=== PATIENT | male | born 2005 | race African-American/Black ===

== ENCOUNTER 2023-10-03 09:51 | Emergency (ER) | payer OTHER ==
[2023-10-03 10:14] VITALS: O2SAT 100
--- NOTE | 2023-10-03 10:40 | ED Physician Documentation ---
PD HPI CHEST PAIN - Stated complaint Stated Complaint: CHEST PX,COUGH - Chief complaint Chief Complaint: Cardiac - History obtained from History obtained from: Patient - History of Present Illness Timing - onset: How many weeks ago (1) Timing - onset during: Light activity, Other (has had illness with fatigue, cough, aches and nausea the past week. Has had pain left chest with coughing, but has had it radnomly as well. No pattern of exertional CP, near syncope. Some dyspnea this week with the ill/cough feeling. Some occasional random sharp pains.) Timing - details: Abrupt onset (he has had occasional brief (seconds to a minute) left chest pains over the past year, not patterned with activity, exertion, eating. Resolves on own in seconds to minutes. Not associated with lightheaded/faint.), Intermittant Quality: Sharp, Pain Review of Systems Constitutional: reports: Chills, Myalgias Nose: reports: Congestion Cardiac: reports: Chest pain / pressure (wioth coughing just this week) Respiratory: reports: Dyspnea, Cough GI: reports: Nausea. denies: Vomiting, Diarrhea PD PAST MEDICAL HISTORY - Past Medical History Past Medical History: Yes Cardiovascular: None Respiratory: None Neuro: None Endocrine/Autoimmune: None GI: None : None HEENT: None Psych: None Musculoskeletal: None Derm: None - Past Surgical History Past Surgical History: Yes - Present Medications Home Medications: Ambulatory Orders Medication Instructions Recorded Confirmed Meloxicam [Mobic] 7.5 mg PO BID 10 Days #20 tablet 10/03/23 Ondansetron Odt [Zofran] 4 mg TL Q6H PRN #10 tablet 10/03/23 - Allergies Allergies/Adverse Reactions: Allergies Allergy/AdvReac Type Severity Reaction Status Date / Time No Known Drug Allergies Allergy Verified 10/03/23 10:00 - Social History Does the pt smoke?: No Smoking Status: Never smoker Does the pt drink ETOH?: No Does the pt have substance abuse?: No - Immunizations Immunizations are current?: Yes - POLST Patient has POLST: No PD ED PE NORMAL - Vitals Vital signs reviewed: Yes - General General: Alert and oriented X 3, Well developed/nourished - HEENT HEENT: Ears normal, Pharynx benign - Neck Neck: Supple, no meningeal sign, No adenopathy - Cardiac Cardiac: RRR, No murmur, No rub - Respiratory Respiratory: No respiratory distress, Clear bilaterally - Abdomen Abdomen: Normal bowel sounds, Soft, Non tender, Non distended - Derm Derm: Normal color, Warm and dry - Neuro Neuro: Alert and oriented X 3, No motor deficit, Normal speech Results - Vitals Vitals: Vital Signs - 24 hr 10/03/23 10/03/23 13:00 13:29 Heart Rate 76 69 Respiratory 18 16 Rate Blood Pressure 124/75 124/74 O2 Saturation 100 100 Oxygen O2 Source Room air - EKG (time done) 0:08 EKG releavant findings:: EKG personally interpreted by author of this note. Relevant findings are: Rate: Rate (enter#) (73) Rhythm: NSR [place]: Normal Intervals: Normal DC QRS: LVH Ischemia: Normal ST segments, ST elevation c/w repol. No: ST elevation c/w ischemia, ST depression - Labs Labs: Laboratory Tests 10/03/23 10/03/23 10/03/23 11:28 11:28 11:28 WBC 3.4 L RBC 5.41 Hgb 15.6 Hct 47.2 MCV 87.2 MCH 28.8 MCHC 33.1 RDW 12.5 Plt Count 244 MPV 8.7 Neut # (Auto) 1.4 L Lymph # (Auto) 1.7 Greer # (Auto) 0.3 Eos # (Auto) 0.1 Baso # (Auto) 0.0 Absolute Nucleated RBC 0.00 Nucleated RBC % 0.0 Sodium 140 Potassium 4.2 Chloride 104 Carbon Dioxide 33 H Anion Gap 3.0 L BUN 11 Creatinine 1.0 Estimated GFR (MDRD) 115 Glucose 73 L Calcium 9.2 Total Bilirubin 1.7 H AST 15 ALT 8 L Alkaline Phosphatase 58 Troponin I High Sens < 2.3 L B-Natriuretic Peptide Total Protein 6.6 Albumin 4.1 Globulin 2.5 Albumin/Globulin Ratio 1.6 Lipase 31 TSH 0.43 Nasal Adenovirus (PCR) Nasal B. parapertussis DNA (PCR) Nasal Coronavir 229E PCR Nasal Coronavir HKU1 PCR Nasal Coronavir NL63 PCR Nasal Coronavir OC43 PCR Nasal Enterovir/Rhinovir PCR Nasal Influenza B PCR Nasal Influenza A PCR Nasal Parainfluen 1 PCR Nasal Parainfluen 2 PCR Nasal Parainfluen 3 PCR Nasal Parainfluen 4 PCR Nasal RSV (PCR) Nasal B.pertussis DNA PCR Nasal C.pneumoniae (PCR) Jean Human Metapneumo PCR Nasal M.pneumoniae (PCR) Nasal SARS-CoV-2 (PCR) 10/03/23 10/03/23 11:28 11:35 WBC RBC Hgb Hct MCV MCH MCHC RDW Plt Count MPV Neut # (Auto) Lymph # (Auto) Greer # (Auto) Eos # (Auto) Baso # (Auto) Absolute Nucleated RBC Nucleated RBC % Sodium Potassium Chloride Carbon Dioxide Anion Gap BUN Creatinine Estimated GFR (MDRD) Glucose Calcium Total Bilirubin AST ALT Alkaline Phosphatase Troponin I High Sens B-Natriuretic Peptide 8 Total Protein Albumin Globulin Albumin/Globulin Ratio Lipase TSH Nasal Adenovirus (PCR) NOT DETECTED Nasal B. parapertussis DNA (PCR) NOT DETECTED Nasal Coronavir 229E PCR NOT DETECTED Nasal Coronavir HKU1 PCR NOT DETECTED Nasal Coronavir NL63 PCR NOT DETECTED Nasal Coronavir OC43 PCR NOT DETECTED Nasal Enterovir/Rhinovir PCR NOT DETECTED Nasal Influenza B PCR NOT DETECTED Nasal Influenza A PCR NOT DETECTED Nasal Parainfluen 1 PCR NOT DETECTED Nasal Parainfluen 2 PCR NOT DETECTED Nasal Parainfluen 3 PCR NOT DETECTED Nasal Parainfluen 4 PCR NOT DETECTED Nasal RSV (PCR) NOT DETECTED Nasal B.pertussis DNA PCR NOT DETECTED Nasal C.pneumoniae (PCR) NOT DETECTED Jean Human Metapneumo PCR NOT DETECTED Nasal M.pneumoniae (PCR) NOT DETECTED Nasal SARS-CoV-2 (PCR) NOT DETECTED PD Medical Decision Making - ED course Complexity details: reviewed results (CXR normal heart size and clear lungs. ECG early repol supported by normal Trop/BNP. Labs otherwise okay. ), considered differential (sounds currently like viral type syndrome with cough, aches, malaise and persistent fatigue. No signs of cardiomyopathy related to viral, with normal Trop, BNP, CXR, and ECG. ), d/w patient ED course: His current symptoms the past week sound c/w URI/viral syndrome with cough, dyspnea and some chest pains. His viral panel is negative but could actually be past the positive curve as sick for a week or more. No pneumonia, PTX. No signs of cardiomyopathy. He is taller and thin but not having Marfinoid features and not hypermobile. The occasional brief pains over the past year did not bring him to the ER but came up as secondary. Main symptoms are the viral ones with some pain on coughing now. The other pains do not sound alarming, non-exertional, seconds only in duration. Sounding more like Precordial Catch Syndrome (Texidors twinge) and I don't feel needs further workup. Current symptoms, if persisting pains, fatigue, dyspena more than typical few weeks, could warrant recheck or further eval, but currently not appearing concerning. Departure - Departure Disposition: 01 Home, Self Care Clinical Impression: Chest pain, Flu-like symptoms, Disrupted sleep-wake cycle Condition: Stable Record reviewed to determine appropriate education?: Yes Follow-Up: [facility] [Provider Group] Prescriptions: Meloxicam [Mobic] 7.5 mg PO BID 10 Days #20 tablet Ondansetron Odt [Zofran] 4 mg TL Q6H PRN #10 tablet PRN Reason: Nausea / Vomiting Comments: Regarding the intermittent chest pains you have had over the past year, it is unclear the cause of these. On exam and basic testing of EKG and blood tests and chest x-ray, there is no obvious underlying heart enlargement or lung abnormality etc. The pattern does not suggest a more serious cause as it has not been exertionally related etc. We do occasionally get sharp chest pains at times and often attributed to a muscular type process. Regarding your more general symptoms this past week with the disrupted sleep and chest discomfort at times along with aches and not feeling well, it does sound fairly flulike. Your respiratory nose panel test was negative for the major viruses. It is potentially possible that your illness is passed enough so that the testing is now negative which commonly occurs within 5 to 7 days, but still having residual inflammatory aspects of aches and disrupted sleep etc. No signs of again underlying disorders as we did check your blood count and electrolytes and kidney function as well as for diabetes and thyroid. I would have the feeling that this may be a viral type illness with the current symptoms and should phase out over the next several days to week or so including the disrupted sleep. You could use some meloxicam anti-inflammatories twice daily for the next week or so. Stay well-hydrated. Use ondansetron if needed for nausea. Forms: PCP List Discharge Date/Time: 10/03/23 13:29
[2023-10-03] MEDS: IBUPROFEN 600 MG TABLET PO STA (11:30)
[2023-10-03 11:35] LABS: BASOPHILS % (AUTO) 0.6 %; EOSINOPHILS # (AUTO) 0.1 10^3/uL (0.0-0.7); EOSINOPHILS % (AUTO) 2.3 %; HCT - HEMATOCRIT 47.2 % (42.0-52.0); HGB - HEMOGLOBIN 15.6 g/dL (14.0-18.0); LYMPHOCYTES # (AUTO) 1.7 10^3/uL (1.5-3.5); LYMPHOCYTES % (AUTO) 48.5 %; MEAN CORPUSCULAR HEMOGLOBIN 28.8 pg (27.0-31.0); MEAN CORPUSCULAR HGB CONC 33.1 g/dL (32.0-36.0); MEAN CORPUSCULAR VOLUME 87.2 fL (80.0-94.0); MEAN PLATELET VOLUME 8.7 fL (7.4-11.4); MONOCYTES # (AUTO) 0.3 10^3/uL (0.0-1.0); MONOCYTES % (AUTO) 8.5 %; NEUTROPHILS # (AUTO) 1.4 10^3/uL (1.5-6.6); NEUTROPHILS % (AUTO) 39.5 %; PLT - PLATELET COUNT 244 10^3/uL (130-450); RED BLOOD COUNT 5.41 10^6/uL (4.70-6.10); RED CELL DISTRIBUTION WIDTH 12.5 % (12.0-15.0); WHITE BLOOD COUNT 3.4 x10^3/uL (4.8-10.8)
[2023-10-03 11:47] LABS: ALBUMIN 4.1 g/dL (3.2-5.5); ALBUMIN/GLOBULIN RATIO 1.6 (1.0-2.2); BILIRUBIN,TOTAL 1.7 mg/dL (0.2-1.0); CALCIUM 9.2 mg/dL (8.5-10.3); POTASSIUM 4.2 mmol/L (3.5-4.5); TOTAL PROTEIN 6.6 g/dL (6.4-8.9)
[2023-10-03 11:53] LABS: TROPONIN I HIGH SENSITIVITY < 2.3 ng/L (2.3-19.7)
[2023-10-03 12:03] LABS: THYROID STIMULATING HORMONE 0.43 uIU/mL (0.34-5.60)
[2023-10-03 12:30] LABS: B. PARAPERTUSSIS- RESP PCR PAN NOT DETECTED; B. PERTUSSIS- RESP PCR PANEL NOT DETECTED; C. PNEUMONIAE- RESP PCR PANEL NOT DETECTED; CORONAVIRUS 229E-RESP PCR NOT DETECTED; CORONAVIRUS HKU1-RESP PCR NOT DETECTED; CORONAVIRUS NL63-RESP PCR NOT DETECTED; CORONAVIRUS OC43-RESP PCR NOT DETECTED; HUMAN METAPNEUMOVIRUS NOT DETECTED; INFLUENZA A- RESP PCR PANEL NOT DETECTED; INFLUENZA B - RESP PCR PANEL NOT DETECTED; M. PNEUMONIAE- RESP PCR PANEL NOT DETECTED; PARAINFLUENZA VIRUS 1 NOT DETECTED; PARAINFLUENZA VIRUS 2 NOT DETECTED; PARAINFLUENZA VIRUS 3 NOT DETECTED; PARAINFLUENZA VIRUS 4 NOT DETECTED; RHINOVIRUS/ENTEROVIRUS NOT DETECTED; RSV- RESP PCR PANEL NOT DETECTED; SARS-CoV-2 -RESP PCR PANEL NOT DETECTED
--- NOTE | 2023-10-03 12:48 | XRAY Report ---
PROCEDURE: Chest 1V INDICATIONS: chest pain TECHNIQUE: One view of the chest was acquired. COMPARISON: None FINDINGS: Surgical changes and devices: None. Lungs and pleura: No pleural effusions or pneumothorax. Lungs are clear. Mediastinum: Mediastinal contours appear normal. Heart size is normal. Bones and chest wall: No suspicious bony lesions. Overlying soft tissues appear unremarkable. IMPRESSION: No acute cardiopulmonary findings Reviewed by: Efrain Harden MD on 10/03/2023 11:47 AM JENNIFER Approved by: Efrain Harden MD on 10/03/2023 11:47 AM AKDT Station ID: [id number]
[2023-10-03 13:29] VITALS: BP 124/74
== END 2023-10-03 13:29 | disposition home or self-care (01) ==
LOC: ED 09:51
DX: R07.9 Chest pain, unspecified (principal); R05.9 Cough, unspecified; R06.00 Dyspnea, unspecified; G47.20 Circadian rhythm sleep disorder, unspecified type
CPT/HCPCS: 36415; 71045; 80053; 83690; 83880; 84443; 84484; 85025; 87633; 93005; 99283; 99284; A9270